=== PATIENT | female | born 1975 | race Caucasian/White ===

== ENCOUNTER 2017-07-09 05:33 | Outpatient (CLI) | payer OTHER ==
[~2017-07-09] VITALS: Ht 163.8 cm; Wt 202.8 kg
[~2017-07-09 05:33] MED LIST: FERR-84 PO; HYDR-3729 PO; IBUP-1773 PO
[2017-07-09] MEDS ORDERED: DOXY100T19 PO (10:11)
[2017-07-09] MEDS ORDERED: HYDR-3812 PO (10:11)
== END 2017-07-09 10:15 ==
LOC: PREOP 05:33
PROVIDERS: ATTEND Obstetrics & Gynecology
DX: Z01.818 Encounter for other preprocedural examination (principal); N75.0 Cyst of Bartholin's gland

== ENCOUNTER 2017-07-11 09:10 | Day surgery (SDC) | payer OTHER ==
[~2017-07-11] VITALS: Ht 163.8 cm; Wt 202.8 kg
[~2017-07-11 09:10] MED LIST changes: +DOXY100T19 PO; +HYDR-3812 PO
--- NOTE | 2017-07-11 09:12 | Progress Note-Pre Operative ---
Pre-Operative Progress Note H&P Reviewed The H&P was reviewed, patient examined and no changes noted. Date Seen by Provider: Jul 11, 2017 Time Seen by Provider: 09:15 Date H&P Reviewed: Jul 11, 2017 Time H&P Reviewed: 09:15 Pre-Operative Diagnosis: Bilateral bartholin's gland cyst SONIA FARRIS DO Jul 11, 2017 9:12 am
--- OUTSIDE RECORDS SUMMARY | 2017-07-11 09:14 | XMS REPORT | Continuity of Care Document ---
Author Author [facility] Address Unknown Phone Unavailable Allergies Medications Problems Procedures Results Encounters ACCT No. Visit Date/Time Discharge Status Pt. Type Provider Facility Loc./Unit Complaint [id number] 06/09/2015 14:39:27 06/09/2015 14:39:28 DIS Outpatient [id number] 06/09/2015 14:39:26 06/09/2015 14:39:26 DIS Outpatient [id number] 06/09/2015 14:33:28 06/09/2015 14:33:31 DIS Outpatient [id number] 06/06/2015 10:26:52 06/06/2015 23:59:59 CLS Outpatient [id number] 06/06/2015 10:26:49 06/06/2015 23:59:59 CLS Outpatient [id number] 04/19/2015 14:22:06 04/19/2015 23:59:59 CLS Outpatient [id number] 04/19/2015 14:21:54 04/19/2015 23:59:59 CLS Outpatient [id number] 04/19/2015 14:21:44 04/19/2015 14:21:47 DIS Outpatient [id number] 04/19/2015 14:21:28 04/19/2015 14:21:29 DIS Outpatient [id number] 11/29/2014 11:36:21 11/29/2014 11:36:25 DIS Outpatient [id number] 11/29/2014 11:35:57 11/29/2014 11:36:02 DIS Outpatient [id number] 11/29/2014 11:35:37 11/29/2014 11:35:42 DIS Outpatient [id number] 11/29/2014 11:35:16 11/29/2014 11:35:21 DIS Outpatient [id number] 11/28/2014 07:59:31 11/28/2014 07:59:31 DIS Outpatient [id number] 11/24/2014 17:32:45 11/24/2014 23:59:59 CLS Outpatient [id number] 11/24/2014 09:32:46 11/24/2014 23:59:59 CLS Outpatient [id number] 11/24/2014 09:31:41 11/24/2014 23:59:59 CLS Outpatient [id number] 11/24/2014 09:31:40 11/24/2014 23:59:59 CLS Outpatient
[2017-07-11 09:40] VITALS: BP 166/67
[2017-07-11] MEDS ORDERED: SEVOFLURANE (ULTANE) 15 ML INHAL SOLN ONE ×3 (09:50→10:32)
[2017-07-11] MEDS ORDERED: LIDOCAINE PF 2% 5 ML (XYLOCAINE) VIAL ONE (09:50)
[2017-07-11] MEDS ORDERED: proPOfol 200 MG/20 ML (DIPRIVAN) VIAL IV ONE (09:50)
[2017-07-11] MEDS ORDERED: SUCCINYLCHOLINE INJ 100 MG/5 ML SYR ONE (09:50)
[2017-07-11] MEDS ORDERED: ONDANSETRON 4 MG/2 ML (SDV) Z0FRAN ONE (09:50)
[2017-07-11] MEDS ORDERED: DEXAMETHASONE 10 MG/ML (DECADRON) 1 ML VIAL ONE (09:50)
[2017-07-11] MEDS ORDERED: fentaNYL INJECTION 100 MCG/2 ML AMP ONE ×2 (09:51→10:39)
[2017-07-11] MEDS ORDERED: MIDAZOLAM 2 MG/2 ML (VERSED) VIAL ONE (09:51)
[2017-07-11] MEDS ORDERED: metroNIDAZOLE 500MG/100ML IVPB 100 ML ONE (09:56)
[2017-07-11] MEDS ORDERED: BUP/EPI 0.5% 1:200,000 (MARCAINE) 10ML VIAL IJ ONE (09:59)
[2017-07-11 10:08] LABS: BASOPHILS % (AUTO) 0 % (0-10); EOSINOPHILS # (AUTO) 0.1 10^3/uL (0.0-0.3); EOSINOPHILS % (AUTO) 1 % (0-10); LYMPHOCYTES # (AUTO) 2.7 X 10^3 (1.0-4.0); LYMPHOCYTES % (AUTO) 26 % (12-44); MEAN CORPUSCULAR HEMOGLOBIN 20 PG (25-34); MEAN CORPUSCULAR HGB CONC 29 G/DL (32-36); MEAN CORPUSCULAR VOLUME 69 FL (80-99); MEAN PLATELET VOLUME 9.5 FL (7.4-10.4); MONOCYTES # (AUTO) 0.7 X 10^3 (0.0-1.0); MONOCYTES % (AUTO) 6 % (0-12); NEUTROPHILS # (AUTO) 6.8 X 10^3 (1.8-7.8); NEUTROPHILS % (AUTO) 66 % (42-75); PLATELET COUNT 358 10^3/uL (130-400); RED BLOOD COUNT 4.26 10^6/uL (4.35-5.85); RED CELL DISTRIBUTION WIDTH 19.7 % (10.0-14.5); WHITE BLOOD COUNT 10.3 10^3/uL (4.3-11.0)
[2017-07-11] MEDS ORDERED: D5 LR IV SOLUTION 1,000 ML IV SCH (10:14)
[2017-07-11] MEDS ORDERED: KETOROLAC 30 MG/ML VIAL IVP ONE (10:15)
[2017-07-11] MEDS ORDERED: ONDANSETRON 4 MG/2 ML (SDV) Z0FRAN IVP PRN ×2 (10:15→11:15)
[2017-07-11] MEDS ORDERED: metroNIDAZOLE 500 MG/100 ML IVPB (PRE-MIX) IV ONE (10:15)
[2017-07-11] MEDS ORDERED: HYDROcodone/APAP 5 MG/325 MG (LORTAB) TAB PO PRN (10:15)
--- NOTE | 2017-07-11 10:16 | Discharge Inst-Women's Service ---
Discharge Inst-Women's Serv Depart Medication/Instructions New, Converted or Re-Newed RX: RX on Chart Consults/Follow Up Additional Follow Up: Yes Orders/Referrals Dr. Farris in 3-4 weeks Activity Activity: Activity as Tolerated Driving Instructions: No Driving for 1 Week NO SMOKING: NO SMOKING Nothing Inside Vagina: No Douching, No [place], No Tampons Diet Discharge Diet: No Restrictions Symptoms to Report to : Bleeding Excessive, Pain Increased, Fever Over 101 Degrees F, Vaginal Bleeding Increase, Questions/Concerns For Any Problems or Questions: Contact Your Physician Skin/Wound Care Bathing Instructions: Shower (and sitz baths) SONIA FARRIS DO Jul 11, 2017 10:16 am
[2017-07-11] MEDS ORDERED: IBUP-1773 PO (10:17)
[2017-07-11] MEDS ORDERED: ROCURONIUM 50 MG/5 ML (ZEMURON) VIAL IV ONE (10:32)
[2017-07-11] MEDS ORDERED: morphine INJ 10 MG/ML 1ML (SYR OR VIAL) IVP PRN (11:15)
[2017-07-11 12:00] VITALS: BP 167/79
[2017-07-11] MEDS ORDERED: LACTATED RINGERS 1,000 ML IV PRN (12:10)
[2017-07-11 12:30] VITALS: BP 162/74
--- NOTE | 2017-07-11 12:52 | OPERATIVE REPORT ---
DATE OF SERVICE: PREOPERATIVE DIAGNOSES: History of bilateral Bartholin gland cyst with aggravation and irritation of the right Bartholin gland. POSTOPERATIVE DIAGNOSES: History of bilateral Bartholin gland cyst with aggravation and irritation of the right Bartholin gland. PROCEDURE: Right Bartholin's gland marsupialization. SURGEON: Sonia Farris DO. ANESTHESIA: General endotracheal. EBL: 30 mL. URINE OUTPUT: 400 mL clear at the end of the procedure. FLUIDS: 800 mL of lactate Ringer solution. FINDINGS: Bulky enlarged abscess in the area of the Bartholin gland on the right side and nonpalpable Bartholin gland on the left side. SPECIMEN SENT: Bartholin gland cultures. INDICATIONS FOR PROCEDURE: This 41-year-old female is a patient seen in my office early in the year for a left Bartholin gland which was conservatively managed with antibiotics. She has had recurrences of these issues several times in the past 10 to 15 years. The right side had been lanced in the past; however, it has recurred since then. The patient contacted me approximately 2 weeks ago with recurrence of the right-sided Bartholin's gland causing her pain. She had been on antibiotics in the past and asked for more conservative management options at that time. We proceeded with starting her on doxycycline; however, there was no improvement in her symptoms. She was seen in the office shortly thereafter and there is definitely some inflammation and nodularity noted of the right Bartholin gland. I discussed with the patient proceeding with marsupialization versus continued conservative management and Word catheter placement or even opening up and packing in the office. The patient proceeded to request marsupialization. Risks of the procedure discussed with the patient in detail including risk of bleeding, infection, damaging surrounding structures, fistula formation, healing delay as well as timing of healing, pre and postoperative expectations, infection and even . After everything was discussed with the patient in detail, consent was obtained in the preoperative area and the patient was taken to the operating room. OPERATIVE REPORT IN DETAIL: Once in the operating room, general anesthesia was found to be adequate. She was placed in dorsal lithotomy position, prepped and draped in normal sterile fashion. She was first examined under anesthesia. Due to her body habitus, I am unable to palpate the left Bartholin's gland and is not enlarged at this time, so I make a decision at that point not to operate on the left Bartholin gland. However, the right Bartholin gland is grossly enlarged. There is swelling of the right labia majora. There is evidence of previous sally at the site on the keratinize epithelium outside of the mucosa of the vagina. Due to the previous exposure there, I decided to make this is my entry site and I infiltrated the skin using 0.25% Marcaine and make an incision with an 11 blade until I am able to encounter the Bartholin's cyst which then I extend this incision using Quesada scissors and the cyst structure. I then opened the cyst and collect cultures of the cyst. I copiously irrigated the cyst out. There was bleeding noted from the cyst wall where my dissection plane has noted. I used 3-0 Vicryl suture in a [id number] fashion around the opening of the cyst wall and open this up to marsupializing the cyst to the keratinize epithelium. This is done and several sutures around the opening of the cyst wall keeping the cyst patent. After this is done, there is no active bleeding noted from any of my dissection planes. I placed bacitracin ointment within the cyst wall itself. I do this after I copiously irrigate the cyst out one last time. The patient tolerated the procedure well, sent to recovery in stable condition. Straight catheterization was performed at the end of the procedure. Lap and sponge counts correct at end of procedure, instrument counts correct as well. Job ID: [id number] DocumentID: [id number] Dictated Date: 07/11/2017 11:10:54 Rn Cardiac Rehab Date: 07/11/2017 12:51:15 Dictated By: OSNIA FARRIS DO MTDKillian
[2017-07-11 13:00] VITALS: BP 148/73
[2017-07-11 13:50] VITALS: BP 148/73
[2017-07-11] MEDS ORDERED: IBUPROFEN 600 MG (MOTRIN) TAB PO PRN (16:00)
== END 2017-07-11 13:50 | disposition home or self-care (01) ==
LOC: SDC 09:10
PROVIDERS: ATTEND Obstetrics & Gynecology
DX: N75.1 Abscess of Bartholin's gland (principal); I10 Essential (primary) hypertension; G47.33 Obstructive sleep apnea (adult) (pediatric); E66.01 Morbid (severe) obesity due to excess calories; Z68.45 Body mass index [BMI] 70 or greater, adult
CPT/HCPCS: 36415; 84703; 85025; 86850; 86900; 86901; 87070; 87075; 87077; 87081; 87186; 87205; 94664

== ENCOUNTER 2021-07-23 05:42 | Outpatient (CLI) | payer OTHER ==
[~2021-07-23] VITALS: Ht 164 cm; Wt 205.9 kg
[~2021-07-23 05:42] MED LIST changes: +ACHD5005 PO; -DOXY100T19 PO; +DOXY100T31 PO; -HYDR-3812 PO
[2021-07-23] MEDS ORDERED: LOSA50TA63 PO (14:05)
== END 2021-07-23 14:17 | disposition home or self-care (01) ==
LOC: PREOP 05:42
PROVIDERS: ATTEND Obstetrics & Gynecology
DX: Z01.818 Encounter for other preprocedural examination (principal)

== ENCOUNTER 2021-07-30 07:45 | Day surgery (SDC) | payer OTHER ==
[~2021-07-30] VITALS: Ht 164 cm; Wt 205.9 kg
[2021-07-30] VITALS (9 sets, daily range): BP systolic 117–146; BP diastolic 59–81
[~2021-07-30 07:45] MED LIST changes: +LOSA50TA63 PO
[2021-07-30] MEDS ORDERED: MIDAZOLAM 2 MG/2 ML (VERSED) VIAL ONE ×2 (07:51→08:48)
[2021-07-30] MEDS ORDERED: LACTATED RINGERS 1,000 ML IV PRN (08:00)
[2021-07-30 08:38] LABS: BASOPHILS % (AUTO) 0 % (0-10); EOSINOPHILS # (AUTO) 0.2 10^3/uL (0.0-0.3); EOSINOPHILS % (AUTO) 2 % (0-10); HEMATOCRIT 39 % (35-52); HEMOGLOBIN 12.5 g/dL (11.5-16.0); LYMPHOCYTES # (AUTO) 3.2 10^3/uL (1.0-4.0); LYMPHOCYTES % (AUTO) 34 % (12-44); MEAN CORPUSCULAR HEMOGLOBIN 27 pg (25-34); MEAN CORPUSCULAR HGB CONC 32 g/dL (32-36); MEAN CORPUSCULAR VOLUME 85 fL (80-99); MEAN PLATELET VOLUME 9.9 fL (9.0-12.2); MONOCYTES # (AUTO) 0.6 10^3/uL (0.0-1.0); MONOCYTES % (AUTO) 6 % (0-12); NEUTROPHILS # (AUTO) 5.4 10^3/uL (1.8-7.8); NEUTROPHILS % (AUTO) 57 % (42-75); PLATELET COUNT 274 10^3/uL (130-400); WHITE BLOOD COUNT 9.5 10^3/uL (4.3-11.0)
[2021-07-30] MEDS ORDERED: LIDOCAINE PF 2% 5 ML (XYLOCAINE) VIAL ONE (08:48)
[2021-07-30] MEDS ORDERED: proPOfol 200 MG/20 ML (DIPRIVAN) VIAL IV ONE ×2 (08:48→08:54)
[2021-07-30] MEDS ORDERED: fentaNYL INJ 100 MCG/2 ML AMP ONE (08:48)
[2021-07-30] MEDS ORDERED: PROPOFOL INJECTION 0 ML IV ONE (08:53)
[2021-07-30] MEDS ORDERED: BUPIVACAINE 0.25% 30 ML (SENSORCAINE) VIAL ONE (09:25)
[2021-07-30] MEDS ORDERED: SEVOFLURANE (ULTANE) 15 ML INHAL SOLN ONE (10:08)
[2021-07-30] MEDS ORDERED: ONDANSETRON 4 MG/2 ML (SDV) Z0FRAN ONE (10:08)
[2021-07-30] MEDS ORDERED: KETOROLAC 30 MG/ML VIAL IVP ONE (10:15)
[2021-07-30] MEDS ORDERED: D5 LR IV SOLUTION 1,000 ML IV SCH (10:15)
[2021-07-30] MEDS ORDERED: ONDANSETRON 4 MG/2 ML (SDV) Z0FRAN IVP PRN ×2 (10:15→10:30)
--- NOTE | 2021-07-30 10:15 | Progress Note-Pre Operative ---
Pre-Operative Progress Note H&P Reviewed The H&P was reviewed, patient examined and no changes noted. Date Seen by Provider: Jul 30, 2021 Time Seen by Provider: :45 Date H&P Reviewed: Jul 30, 2021 Time H&P Reviewed: :45 Pre-Operative Diagnosis: BMI 76, IUD needs replaced SONIA FARRIS DO Jul 30, 2021 10:15
--- NOTE | 2021-07-30 10:17 | Anesthesia-General Post-Op ---
General Patient Condition Mental Status/LOC: Same as Preop Cardiovascular: Satisfactory Nausea/Vomiting: Absent Respiratory: Satisfactory Pain: Controlled Complications: Absent Post Op Complications Complications None Follow Up Care/Instructions Patient Instructions None needed. Anesthesia/Patient Condition Patient Condition Patient is doing well, no complaints, stable vital signs, no apparent adverse anesthesia problems. No complications reported per nursing. SHANDRA PARRISH CRNA Jul 30, 2021 10:17
[2021-07-30] MEDS ORDERED: morphine INJ 10 MG/ML 1ML (SYR OR VIAL) IVP ONE (10:30)
[2021-07-30] MEDS ORDERED: LOSA1TAB20 PO (11:10)
--- NOTE | 2021-07-30 15:16 | OPERATIVE REPORT ---
DATE OF SERVICE: PREOPERATIVE DIAGNOSES: 1. A 45-year-old female with a BMI of 76. 2. Difficult exam in the office. 3. Need for IUD replacement. POSTOPERATIVE DIAGNOSES: 1. A 45-year-old female with a BMI of 76. 2. Difficult exam in the office. 3. Need for IUD replacement. PROCEDURE: Exam under anesthesia, removal and replacement of levonorgestrel containing IUD. SPECIMEN SENT: None. INDICATIONS FOR PROCEDURE: This 45-year-old female is a patient who has sought care in my office. Her previous IUD had been placed five to six years ago. She is wishing to have it replaced. She was happy with the IUD. She had no bleeding, and it was placed for the significant risk for endometrial cancer due to the patient's BMI of 76. I attempted to visualize the previous IUD in the office, unable to do so due to the patient's body habitus. Therefore, I discussed with the patient proceeding with this done under anesthesia. Risks of procedure were discussed with the patient in detail including risk of anesthesia. After all of her questions were answered, consent was obtained, the patient was taken to the operating room. OPERATIVE REPORT IN DETAIL: Once in the operating room, LMA anesthesia was administered. She was placed in dorsal lithotomy position, prepped and draped in normal sterile fashion. I first drained the bladder using straight catheterization. A weighted speculum was then inserted to the patient's vagina, which allows little to no improvement in visualization. I used a wide and long Graves speculum; and still I am unable to visualize the cervix with IUD strings. Finally, I resort to a right angle speculum extra-long, extra wide with some sidewall retraction and a little bit of Trendelenburg, I am able to finally identify the previous IUD strings, remove it intact without difficulty. I grasped the cervix at that point as I am able to visualize using a single tooth tenaculum. I am able to retract into position, so I am able to see the external cervical os. I then placed the new IUD at a depth of 6.5 cm as the cavity depth is sounded to 6.5 cm, it is placed in appropriate fashion. I trim the IUD strings approximately 3 to 4 cm outside the external cervical os. I then removed all the instruments from the patient's vagina. The patient tolerated the procedure well and was taken to recovery area in stable condition. Lap and sponge counts were correct at the end of procedure. Instrument counts correct as well. Job ID: [id number] DocumentID: [id number] Dictated Date: 07/30/2021 10:29:25 Train Operator Date: 07/30/2021 15:15:52 Dictated By: SONIA FARRIS DO
== END 2021-07-30 12:10 | disposition home or self-care (01) ==
LOC: SDC 07:45
PROVIDERS: ATTEND Obstetrics & Gynecology
DX: T83.39XS Other mechanical complication of intrauterine contraceptive device, sequela (principal); N93.8 Other specified abnormal uterine and vaginal bleeding; I10 Essential (primary) hypertension; G47.33 Obstructive sleep apnea (adult) (pediatric); E66.01 Morbid (severe) obesity due to excess calories; Z68.45 Body mass index [BMI] 70 or greater, adult; Z98.890 Other specified postprocedural states; Z79.899 Other long term (current) drug therapy
CPT/HCPCS: 36415; 84703; 85025; 86850; 86900; 86901; 87081